=== PATIENT | male | born 1940 | race Caucasian/White ===

== ENCOUNTER 2021-06-21 11:06 | Outpatient (REF) | payer SELFPAY | END 2021-06-21 11:07 | disposition home or self-care (01) | LOC: HO.HAP 11:06 | PROVIDERS: Visit Provider Internal Medicine Medical Oncology | DX: Z13.89 Encounter for screening for other disorder (principal) ==

== ENCOUNTER 2021-07-20 10:50 | Outpatient (REF) | payer SELFPAY | END 2021-07-20 10:51 | disposition home or self-care (01) | LOC: HO.HAP 10:50 | PROVIDERS: Visit Provider Internal Medicine Medical Oncology | DX: Z46.1 Encounter for fitting and adjustment of hearing aid (principal); H90.3 Sensorineural hearing loss, bilateral | CPT/HCPCS: V5264 ==

== ENCOUNTER 2022-04-27 08:29 | Outpatient (REF) | payer SELFPAY | END 2022-04-27 08:30 | disposition home or self-care (01) | LOC: HO.HAP 08:29 | PROVIDERS: Visit Provider Internal Medicine Medical Oncology | DX: Z46.1 Encounter for fitting and adjustment of hearing aid (principal); H90.3 Sensorineural hearing loss, bilateral | CPT/HCPCS: 99499 ==

== ENCOUNTER 2022-05-25 14:40 | Outpatient (REF) | payer SELFPAY | END 2022-05-25 14:41 | disposition home or self-care (01) | LOC: HO.HAP 14:40 | PROVIDERS: Visit Provider Internal Medicine Medical Oncology | DX: Z46.1 Encounter for fitting and adjustment of hearing aid (principal); H90.3 Sensorineural hearing loss, bilateral | CPT/HCPCS: V5264 ==

== ENCOUNTER 2022-07-30 08:16 | Outpatient (REF) | payer MEDICARE, SELFPAY ==
[2022-07-30 11:09] LABS: MANUAL DIFF FLAG NO
[2022-07-30 11:34] LABS: Basophils Absolute Auto 0.1 X10*3/uL (0.0-0.2); Basophils Percent Auto 0.7 % (0-2); Eosinophils Absolute Auto 0.1 X10*3/uL (0.0-0.4); Hematocrit 45.3 % (42.0-52.0); Hemoglobin 15.1 g/dl (14.0-18.0); Imm Gran Abs Auto 0.01 X10*3/uL (0.00-0.03); Imm Gran Pct Auto 0.1 % (0.0-0.4); Lymphocytes Percent Auto 28.6 % (20-40); Mean Corpuscular HGB Conc 33.3 g/dl (31.0-36.0); Mean Corpuscular Hemoglobin 31.9 pg (27.0-33.0); Mean Corpuscular Volume 95.8 fL (80.0-98.0); Mean Platelet Volume 10.7 fL (9.4-12.4); Monocytes Absolute Auto 0.9 X10*3/uL (0.1-1.2); Neutrophils Absolute Auto 3.8 x10*3/uL (2.0-8.3); Neutrophils Percent Auto 55.6 % (45-73); Platelet Count 189 X10*3/uL (160-400); Red Blood Count 4.73 X10*6/uL (4.60-5.80); Red Cell Distribution Width 13.1 % (11.0-16.0); White Blood Count 6.9 X10*3/uL (4.8-10.8)
[2022-07-30 12:04] LABS: Alanine Aminotransferase 13 U/L (0-40); Albumin Level 4.1 g/dL (3.5-5.0); Alkaline Phosphatase 75 U/L (39-117); Anion Gap 15 (12-20); Aspartate Amino Transferase 23 U/L (5-37); Bilirubin Total 0.9 mg/dL (0.0-1.0); Blood Urea Nitrogen 28 mg/dL (9-16); Calcium 9.5 mg/dL (8.4-10.2); Carbon Dioxide 27 mmol/L (22-29); Chloride 103 mmol/L (96-108); Cholesterol 202 mg/dL; Estimated Glomerular Filt Rate 59; Glucose Fasting 96 mg/dL (60-99); HDL Cholesterol 58 mg/dL; LDL Cholesterol Calculated 128 mg/dl; Potassium 4.5 mmol/L (3.3-5.1); Sodium 140 mmol/L (135-145); Total Protein 7.1 g/dL (6.5-8.0); Triglycerides 84 mg/dL
[2022-07-30 12:08] LABS: Prostate Specific Antigen < 0.05 ng/mL (<0.05-4.0); Thyroid Stimulating Hormone 1.18 uIU/mL (0.32-4.0)
== END 2022-07-30 08:17 | disposition home or self-care (01) ==
LOC: HO.WFDLDS 08:16
PROVIDERS: Visit Provider Internal Medicine Medical Oncology
DX: Z12.5 Encounter for screening for malignant neoplasm of prostate (principal); I10 Essential (primary) hypertension; E05.90 Thyrotoxicosis, unspecified without thyrotoxic crisis or storm; E66.3 Overweight; Z85.46 Personal history of malignant neoplasm of prostate
CPT/HCPCS: 36415; 80053; 80061; 84153; 84439; 84443; 85025

== ENCOUNTER 2023-08-21 13:53 | Outpatient (REF) | payer SELFPAY | END 2023-08-21 13:54 | disposition home or self-care (01) | LOC: HO.HAP 13:53 | PROVIDERS: Visit Provider Internal Medicine Medical Oncology | DX: Z46.1 Encounter for fitting and adjustment of hearing aid (principal); H90.3 Sensorineural hearing loss, bilateral | CPT/HCPCS: 92700 ==

== ENCOUNTER 2025-06-11 08:45 | Outpatient (REF) | payer SELFPAY ==
--- OUTSIDE RECORDS SUMMARY | 2025-05-05 05:30 | XMS_ITS ---
Author Organization Tc Veliz III, MD Address [address] [place] [address] [place] [address] Care Team Providers Care Consumer Affairs Director Name Role Phone Tc Veliz Primary Care Provider Allergies Allergen (clinical drug ingredient) Drug/Non Drug Allergy documented on EMR Reaction Allergy Type Onset Date Status No Known Drug Allergy Unknown Drug Allergy Active REASON FOR VISIT Prostate cancer, Cardiomyopathy, Hypertension, Hernias, Hyperthyroid is, Hearing loss Medications Medication SIG (Take, Route, Fr equency, Duration) Notes Start Date End Date Status Sertraline HCl 50 MG 1 tablet Orally Onc e a day for 30 days 05/05/2025 Active Tamsulosin HCl 0.4 MG 1 capsule 30 minut es after the same meal each day Orally Once a day 07/28/2024 Active Carvedilol 12.5 MG 1 tablet with food O rally Twice a day Active Carvedilol 12.5 MG 1 tablet with food O rally Twice a day 08/26/2024 Active Social History Tobacco Use: Social History Observation Description Date Details (start date - stop date) Never Smoker NA - NA Sex Assigned At : Social History Observation Description Sex Assigned At Male Tobacco Use/Smoking Question Answer Notes Patient is a nonsmoker Additional Findings: Tobacco Non-User Aggressive non-smoker Problems Problem Type SNOMED Code ICD Code Onset Dates Problem Status W/U Status Risk Notes Problem [id number] Generalized anxiety disorder (F41.1) Active confirmed After a discussion he was begun on sertraline. He has become unable to sleep well and it is affecting his quality of life and relationships . Vital Signs Temperature 97.2 degrees Fahrenheit 05/05/20 25 Blood pressure systolic 144 mm Hg 05/05/20 25 Blood pressure diastolic 88 mm Hg 025 Heart Rate 75 /min 05/05/2025 Height 67 in 05/05/2025 Weight 160 lbs 05/05/2025 BMI 25.06 kg/m2 05/05/2025 Encounters Encounter Location Date Provider Diagnosis Tc Veliz III, MD [address] [place] [address] [address] [place], [place] [address] 05/05/2025 Tc Veliz History of prostate cancer Z85.46 ; Generalized anxiety disorder F41.1 ; Essential hypertension I10 ; Overweight E66.3 ; Hyperthyroidism E05.90 ; Non-recurrent bilateral inguinal hernia without obstruction or gangrene K40.20 ; 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 There was no sign of recurrent disease today. He remains in remission 05/05/2025 Generalized anxiety disorder (ICD-10 - F41.1) After a discussion he was begun on sertraline. He has become unable to sleep well and it is affecting his quality of life and relationships. 05/05/2025 Essential hypertension (ICD-10 - I10) His blood pressure is elevated. We discussed weight loss and sodium restriction today.He will resume the carvedilol. 05/05/2025 Overweight (ICD-10 - E66.3) His body mass index is very slightly over 25. We have discussed diet and nutrition today. 05/05/2025 Hyperthyroidism (ICD-10 - E05.90) He is no longer on medication. He is clinically euthyroid and doing well. 05/05/2025 Non-recurrent bilateral inguinal hernia without obstruction or gangrene (ICD-10 - K40.20) These were seen on a CT scan. He is asymptomatic and will be observed. No treatment is necessary at this time. 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 He is more dyspneic with exertion. His lungs were clear in his neck veins were not distended. There was no peripheral edema today. If this worsens an echocardiogram will be done. 05/05/2025 Nonrheumatic mitral valve regurgitation (ICD-10 - I34.0) On an echocardiogram in the past he had moderate mitral valve insufficiency. He is asymptomatic at this time. I did not hear a murmur. 05/05/2025 Sensorineural hearin g loss (SNHL) of both ears (ICD-10 - H90.3) He has hearing aids and I recommended an annual audiology examination. Plan Of Treatment Medication Medication Name Sig Start Date Stop Date Notes Sertraline HCl 50 MG 1 tablet Orally Onc e a day for 30 days 05/05/2025 Tamsulosin HCl 0.4 MG 1 capsule 30 minut es after the same meal each day Orally Once a day 07/28/2024 Carvedilol 12.5 MG 1 tablet with food O rally Twice a day Carvedilol 12.5 MG 1 tablet with food O rally Twice a day 08/26/2024 Next Appt Details Follow Up: 3 Weeks, Reason: Office visit Provider Name:Tc Veliz, 07/30/2025 03:15:00 PM, [address] [place] [address] [address], [place], [phone], Progress Notes * Andrew MIXON HDOB: [birth year] (85 yo M)Acc No.[id number]:05/05/2025 Progress Notes Patient: Andrew NUR Provider: Chato Veliz MD :1940 A ge:85 Y S ex:Male Date:05/05/2025 Address:[address] [place], [place] [id number] Subjective: * Chief Complaints: * P rostate cancerCardiomyopathyHypertensionHerniasHyperthyroid isHearing loss * HPI: C OVID-19 Screening: He returns for medical management. He has been troubled by nocturnal urinating. He is rising from sleep 2 or 3 times a night. He has stopped taking the carvedilol because he thought it was a diuretic making urine his systolic blood pressure is elevated today. We have resumed the carvedilol and I have explained that it is not a diuretic. I have offered to begin him on tamsulosin. He is quite concerned about the side effects of medication in general and said he would let me know if you want to take it. We then discussed lifestyle modifications he could think to reduce nocturia. He is having a lot of anxiety at night saying that he cannot sleep well. He has been taking melatonin.He has recently has severe anxiety during the day as well and it is beginning to affect his quality of life. K vitamin prescription for sertraline on a follow-up visit in 21 days. I offered to refer him for psychotherapy initially would think about that. Questions H ave you had any new onset fever, chills, cough, congestion, sore throat, shortness of breath, muscle aches? N o * ROS: G eneral/Constitutional: pain o nly normal aches and pains. C hills d enies.?Fatigue a dmits. F ever d enies. E NT: Decreased hearing i n both ears. R espiratory: Cough d enies. C ardiovascular: Chest pain with exertion d enies. D yspnea on exertion?denies. S hortness of breath d enies. G astrointestinal: Constipation o ccasional. D ecreased appetite d enies. D iarrhea d enies. H eartburn d enies. N ausea d enies. R ectal bleeding d enies. V omiting d enies. H ematology: bruising d enies. p etechiae d enies. S wollen glands n one have been noted. G enitourinary: Frequent urination d enies. M usculoskeletal: Muscle aches d enies. P ainful joints d enies. S ciatica d enies. W eakness d enies. S kin: Itching d enies. R ravi d enies. S kin lesion(s)?denies. N eurologic: Difficulty speaking d enies. D izziness d enies.?Headache d enies. L ow back pain d enies. P sychiatric: Depressed mood w hich is moderate. * Medical History: * Surgical History: c ataract surgery right eye 05/2020left shoulder surgery 2018radical prostatectomy excision of sebaceous cyst right scapula 2009cataract left eye 06/2020 * Hospitalization/Major Diagno stic Procedure: D enies Past Hospitalization * Family History: F ather: , Chronic renal failure on dialysis. M other: , Congestive heart failure. He is unaware of any family history of inherited malignancy. There is a strong family history of atherosclerosis, ischemic heart disease and congestive heart failure. His father of renal failure. * Social History: T obacco Use: T obacco Use/Smoking Silvio silva is a n onsmoker A dditional Findings: Tobacco Non-User A ggressive non-smoker Kurt ham splits his time between [place] and [place]. He has a daughter. He currently lives in [facility]. * Medications: T akingTamsulosin HCl 0.4 MG Capsule 1 capsule 30 minutes after the same meal each day Orally Once a day , stop date 11/29/2025Taking Tamsulosin HCl 0.4 MG Capsule 1 capsule 30 minutes after the same meal each day Orally Once a day , stop date 11/29/2025Not-Taking/PRNCarvedilol 12.5 MG Tablet 1 tablet with food Orally Twice a day Carvedilol 12.5 MG Tablet 1 tablet with food Orally Twice a day Medication List reviewed and reconciled with the patientNot-Taking/PRN Carvedilol 12.5 MG Tablet 1 tablet with food Orally Twice a day Not-Taking/PRN Carvedilol 12.5 MG Tablet 1 tablet with food Orally Twice a day Medication List reviewed and reconciled with the patient * Allergies: N o Known Drug Allergyno[Allergies Verified] Objective: * Vitals: H t: 67, Wt:160, BMI:25.06, BP:144/88, HR:75, Temp:97.2, Wt-k.57. * Examination: G eneral Examination: GENERAL APPEARANCE: p leasant, well nourished, well developed, in no acute distress, calm and relaxed, overweight, man. HEAD: a traumatic, normocephalic. EYES: e andre, perrla, anicteric, conjugate. EARS: N ormal anatomy with bilateral hearing loss. NOSE: s eptum intact. ORAL CAVITY: n ormal, unremarkable. NECK/THYROID: n o jugular venous distention, no carotid bruit, thyroid normal. LYMPH NODES: n o enlarged lymph nodes,spleen normal. SKIN: n o suspicious lesions, anicteric. HEART: n o clicks, gallops, murmurs, or rubs, regular rhythm, S1, S2 normal, no s3, or vascular bruits. LUNGS: c lear to auscultation . BREASTS: no masses palpable bilaterally. ABDOMEN: b owel sounds normal, no ascites, no organomegaly, no mass, overweight. RECTAL EXAM: n ot examined. MUSCULOSKELETAL: e xtremities unremarkable, no clubbing, cyanosis or edema. PERIPHERAL PULSES: n ormal. NEUROLOGIC: a lert and oriented, cranial nerves 2-12 grossly intact, deep tendon reflexes 2+ symmetrical, motor strength normal upper and lower extremities, sensory exam intact. PSYCH: a lert, oriented. Assessment: * Assessment: 1. G eneralized anxiety disorder - F41.1 (Primary) N otes :After a discussion he was begun on sertraline. He has become unable to sleep well and it is affecting his quality of life and relationships. 2 . H istory of prostate cancer - Z85.46 N otes :A PSA will be done periodically. There was no sign of recurrent disease today. He remains in remission 3 . E ssential hypertension - I10 N otes :His blood pressure is elevated. We discussed weight loss and sodium restriction today.He will resume the carvedilol. 4 . O verweight - E66.3 N otes :His body mass index is very slightly over 25. We have discussed diet and nutrition today. 5 . H yperthyroidism - E05.90 N otes :He is no longer on medication. He is clinically euthyroid and doing well. 6 . N on-recurrent bilateral inguinal hernia without obstruction or gangrene - K40.20 N otes :These were seen on a CT scan. He is asymptomatic and will be observed. No treatment is necessary at this time. 7 . A lcoholic cardiomyopathy - I42.6 N otes :He says as she ages. He is more dyspneic with exertion. His lungs were clear in his neck veins were not distended. There was no peripheral edema today. If this worsens an echocardiogram will be done. 8 . N onrheumatic mitral valve regurgitation - I34.0 N otes :On an echocardiogram in the past he had moderate mitral valve insufficiency. He is asymptomatic at this time. I did not hear a murmur. 9 . S ensorineural hearing loss (SNHL) of both ears - H90.3 N otes :He has hearing aids and I recommended an annual audiology examination. Plan: * Treatment: 2. H istory of prostate cancer Start Sertraline HCl Tablet, 50 MG, 1 tablet, Orally, Once a day, 30 days, 30, Refills 11. ? 3. O thers Continue Tamsulosin HCl Capsule, 0.4 MG, 1 capsule 30 minutes after the same meal each day, Orally, Once a day. * Procedure Codes: * Preventive Medicine: Counseling: C are goal follow-up plan: Counseling for abnormal BMI given Y es Above Normal BMI Follow-up D ietary management education, guidance, and counseling, Dietary needs education * Follow Up: 3 Weeks (Reason: Office visit) * Images: * Sign off status: Completed true * Provider: Chato Veliz MD Date: 0 05/05/2025 Generated for Vinay walker/Julito/eTransmitting on: 0 06/11/2025 08:57 AM EDT History and Physical Notes * HPI (History of Present Illness) Category Sub-Category Detail Notes COVID-19 Screening Questions Have you had any new onset fever, chills, cough, congestion, sore throat, shortness of breath, muscle aches?: No Examination Category Sub-Category Detail Notes General Examination GENERAL APPEARANCE: pleasant , well nourished, well developed, in no acute distress, calm and relaxed, overweight, man HEAD: atraumatic, normocep halic EYES: eomi, perrla, anicte jonny, conjugate EARS: Normal anatomy with bilateral hearing loss NOSE: septum intact NECK/THYROID: no jugular venous di stention, no carotid bruit, thyroid normal HEART: no clicks, gallops, murmurs, or rubs, regular rhythm, S1, S2 normal, no s3, or vascular bruits LUNGS: clear to auscultatio n ABDOMEN: bowel sounds normal, no ascites, no organomegaly, no mass, overweight NEUROLOGIC: alert and oriented, cranial nerves 2-12 grossly intact, deep tendon reflexes 2+ symmetrical, motor strength normal upper and lower extremities, sensory exam intact SKIN: no suspicious lesion s, anicteric PERIPHERAL PULSES: normal BREASTS: no masses palpable b ilaterally MUSCULOSKELETAL: extremities unremark able, no clubbing, cyanosis or edema LYMPH NODES: no enlarged lymph no otto,spleen normal RECTAL EXAM: not examined PSYCH: alert, oriented ORAL CAVITY: normal, unremarkable
--- NOTE | 2025-06-11 11:13 | MHC.AU.HA3 ---
Hearing Instrument Follow-Up- Binaural Date of Visit: 06/11/25 Right Ear: Make, Model, Color, Serial Number: [id number] Risk And Insurance Manager Repair Warranty: 06/13/2019 Risk And Insurance Manager Loss and Damage Warranty: 06/13/2019 [facility] Service Plan: exp Battery Size: 13 Earmold/Dome/CShell/SlimTip:silicone canal mold Dispensed By: [facility] Date of Fittin04/11/2016 Left Ear: Make, Model, Color, Serial Number: [id number] Risk And Insurance Manager Repair Warranty: 06/13/2019 Risk And Insurance Manager Loss and Damage Warranty: 06/13/2019 - USED [facility] Service Plan: exp Battery Size: 13 Earmold/Dome/CShell/SlimTip: silicone canal mold Dispensed By: [facility] Date of Fittin04/11/2016 Follow-Up Summary: Andrew is seen for hearing aid problem today. He reports getting new earmolds last fall in [place]. He is worried that the left one is too tight, thinks he might need a new earmold. He notes that he doesn't hear any feedback when he cups that ear and his own voice sounds louder on that side. He reports the fit of the mold is comfortable. He reports the right mold was uncomfortable so he modified that himself with a razor. Advised that if the mold is fitting comfortably, a tight fit without feedback is a good thing and we can try an adjustment for his own voice. Cleaned hearing aids and earmolds, ran through dehumidifier, replaced tone hooks, re-tubed earmolds. Listening check positive. Note Andrew is wearing two hearing aids with the same serial number ([id number]), this has been noted previously when seen 08/21/23. Adjusted occlusion management on the left aid. Andrew reports improvement. Discussed updated audiogram, not done since 2018, if further adjustment is needed. Briefly discussed new technology. Recommendations: Recommendations: Hearing instrument follow-up or maintenance as needed. Diagnosis Code(s): Primary Diagnosis: H90.3 Bilateral Sensorineural Hearing Loss Signature: Provider: Caitlin King, [facility]
== END 2025-06-11 08:46 | disposition home or self-care (01) ==
LOC: HO.HAP 08:45
PROVIDERS: Visit Provider Internal Medicine Medical Oncology
DX: Z46.1 Encounter for fitting and adjustment of hearing aid (principal); H90.3 Sensorineural hearing loss, bilateral
CPT/HCPCS: 92593